=== PATIENT | male | born 1935 | race American Indian/Alaskan Native ===

== ENCOUNTER 2017-12-15 11:22 | Day surgery (SDC) | payer MEDICARE ==
[~2017-12-15 11:22] MED LIST: ANCEF/STERILE WATER 2 GM/20 ML 2 GM/20 ML SYRINGE IV NR; NACL 0.9% 1000 ML 1,000 ML IV SCH
[2017-12-15] MEDS ORDERED: ANCEF/STERILE WATER 2 GM/20 ML 2 GM/20 ML SYRINGE IV ONE (13:33)
[2017-12-15] MEDS: HEPARIN 10,000 UNITS/10 ML ONE ×3 (14:17→14:47)
[2017-12-15] MEDS: XYLOCAINE 2% INFILTRATI ONE ×4 (14:17→14:42)
[2017-12-15] MEDS: VERSED ONE ×3 (14:17→14:40)
[2017-12-15] MEDS: HEPARIN/NS 5000 UNIT/500ML(CATH LAB) 0 ML IR ONE ×3 (14:19→14:40)
[2017-12-15] MEDS: SUBLIMAZE ONE ×3 (14:23→14:41)
[2017-12-15] MEDS: NACL 0.9% 500 ML 500 ML ONE ×2 (14:24→14:41)
--- NOTE | 2017-12-15 15:00 | Short Stay Summary ---
Short Stay Documentation Date of service: 12/15/17 Narrative H&P: See H&P - Allergies and Medications Current Medications: Allergies No Known Allergies Allergy (Unverified 12/15/17 11:23) Active Medications Cefazolin Sodium (Ancef/Sterile Water 2 Gm/20 Ml) 2 gm in 20 mls @ 80 mls/hr IV PREOP NR; Protocol Stop: 12/15/17 23:59 Last Admin: 12/15/17 14:41 Dose: 20 mls Sodium Chloride (Nacl 0.9% 1000 Ml) 1,000 mls @ 42 mls/hr IV DIRECT JYOTI - Brief post op/procedure progress note Date of procedure: 12/15/17 Pre-op diagnosis: Complications of Dialysis Access Post-op diagnosis: same Procedure: 1. Exchange of Right Internal Jugular Permacath to 23 Cm Bard GlidePath Permacath 2. Radiologic Supervision with Interpretation Anesthesia: local, other (IV sedation) Surgeon: ANIKET WOODS Estimated blood loss: minimal Pathology: none Condition: stable - Disposition Condition at discharge: Good Disposition: DC-01 TO HOME OR SELFCARE Short Stay Discharge Plan Activity: other (no showering or getting permacath wet) Follow up with: PRIMARY CARE, [Primary Care Provider] - 7 Days
--- NOTE | 2017-12-15 15:10 | Operative Report ---
Operative Report Operative Report: Date of Procedure: 12/15/2017 Pre-operative Diagnosis: Complications of Dialysis Access Post-operative Diagnosis: Same Procedure(s): 1. Exchange of Right Internal Jugular Permacath to 23 cm Bard GlidePath Permacath 2. Radiologic Supervision with Interpretation Surgeon: Davin Rainey M.D. Plastic Tile Setter: None Anesthesia: Local and IV sedation EBL: Minimal Counts: Correct Complications: None Condition: Stable Findings: Exchange of right internal jugular permacath with tip in right atrium and no evidence of pneumothorax. Specimen: Indwelling right internal jugular permacath discarded. Indication: The patient is an 82-year-old male with a history of end-stage renal disease on hemodialysis through a right internal jugular permacath who was sent to the hospital for change of a nonfunctioning right internal jugular permacath. His family was given the risk, benefits, and alternative procedures and consented to the permacath exchange. Description of Procedure: The patient was brought to the [facility] and laid in supine position. After he was adequately sedated his right neck and chest and indwelling catheter were prepped and draped in normocephalic fashion. The exit site on the chest was then anesthetized with lidocaine and a hemostat was used to dissect the cuff from the surrounding tissue. A 0.035 J-wire was advanced into the catheter and then into the IVC under fluoroscopy. The indwelling permacath was then removed leaving the wire in place. The new permacath was then advanced over the wire by Seldinger technique with the tip of the catheter in the right atrium. The wire wire was then removed and both ports were aspirated and flushed with heparinized saline. The ports within prior and with the appropriate amount of heparin and the catheter was secured in place with 2-0 Ethilon. Fluoroscopy again demonstrated the catheter tip was in adequate position with the tip in the right atrium and no evidence and no evidence of pneumothorax. The catheter was then dressed sterilely. The patient tolerated the procedure well. All sponge, needle, and instrument counts were correct. The patient was taken to the recovery area in stable condition.
[2017-12-15] MEDS ORDERED: CATAPRES ONE (16:07)
[2017-12-15] MEDS ORDERED: LOPRESSOR ONE (16:27)
[2017-12-15 16:46] VITALS: BP 194/103
[2017-12-15] MEDS ORDERED: LOPRESSOR PO SCH (17:00)
== END 2017-12-15 11:23 | disposition home or self-care (01) ==
LOC: CATHLABREC 11:22
PROVIDERS: ATTEND Surgery Vascular Surgery
DX: T82.898A Other specified complication of vascular prosthetic devices, implants and grafts, initial encounter (principal); I12.0 Hypertensive chronic kidney disease with stage 5 chronic kidney disease or end stage renal disease; N18.6 End stage renal disease; I25.2 Old myocardial infarction; Y83.2 Surgical operation with anastomosis, bypass or graft as the cause of abnormal reaction of the patient, or of later complication, without mention of misadventure at the time of the procedure
CPT/HCPCS: 36415; 36581; 77001; 84132; C1750; J0690; J1644; J2250; J3010; J7040